=== PATIENT | male | born 1955 | race African-American/Black ===

== ENCOUNTER 2018-06-11 19:10 | Inpatient (IN) | payer MEDICAID ==
[~2018-06-11] VITALS: Ht 177.8 cm; Wt 94.5 kg
[2018-06-11] MEDS ORDERED: AMLO10TA6 PO (19:34)
[2018-06-11] MEDS ORDERED: METO50TA82 PO (19:34)
[2018-06-11] MEDS ORDERED: ATOR-2 PO (19:34)
[2018-06-11] MEDS ORDERED: ASPI-496 PO (19:34)
[2018-06-11] MEDS ORDERED: ENAL20TA PO (19:34)
[2018-06-11] MEDS ORDERED: ONDANSETRON ODT 4 MG PO PRN (20:30)
[2018-06-11] MEDS ORDERED: ONDANSETRON 2MG/ML, 2ML IVPush PRN (20:30)
[2018-06-11] MEDS ORDERED: hydrALAzine 20 MG/ML, 1ML IVPush PRN (20:30)
[2018-06-11 21:28] VITALS: BP 166/104
[2018-06-11] MEDS: SODIUM CHLORIDE 0.9% 1,000 ML IV SCH (21:58)
[2018-06-11] MEDS: HEPARIN 5,000 UNITS/ML, 1ML SQ SCH (22:00)
[2018-06-11] MEDS: NICOTINE 14MG/24 HR PATCH.TD24 TD SCH (22:01)
[2018-06-11] MEDS: AMITRIPTYLINE 25 MG TABLET PO SCH (22:01)
[2018-06-11] MEDS: METOPROLOL TARTRATE 50 MG TABLET PO SCH (22:01)
[2018-06-11] MEDS: ATORVASTATIN 10 MG TABLET PO SCH (22:01)
[2018-06-12 04:28] VITALS: BP 161/98
[2018-06-12] MEDS: ACETAMINOPHEN 325 MG TABLET PO PRN (04:35)
[2018-06-12] MEDS: HEPARIN 5,000 UNITS/ML, 1ML SQ SCH ×3 (04:35→21:20)
[2018-06-12 05:21] LABS: BASOPHILS # (AUTO) 0.06 x10^3/uL (0-0.1); BASOPHILS % (AUTO) 1 % (0-1); EOSINOPHILS # (AUTO) 0.59 x10^3/uL (0-0.4); EOSINOPHILS % (AUTO) 6 % (1-7); LYMPHOCYTES # (AUTO) 2.44 x10^3/uL (1-3.4); LYMPHOCYTES % (AUTO) 26 % (22-44); MD NO; MEAN CORPUSCULAR HEMOGLOBIN 28.8 pg (27.5-34.5); MEAN CORPUSCULAR HGB CONC 32.9 g/dL (33.2-36.2); MEAN CORPUSCULAR VOLUME 87.5 fL (81-97); MEAN PLATELET VOLUME 9.7 fL (7.4-10.4); MONOCYTES # (AUTO) 0.95 x10^3/uL (0.2-0.8); MONOCYTES % (AUTO) 10 % (2-9); NEUTROPHILS # (AUTO) 5.39 x10^3/uL (1.8-6.8); NEUTROPHILS % (AUTO) 57 % (42-75); PLATELET COUNT 214 x10^3/uL (130-400); RED CELL DISTRIBUTION WIDTH 15.1 % (9.4-14.8)
[2018-06-12 05:34] LABS: ANION GAP 6 mmol/L (5-15); CALCIUM 8.6 mg/dL (8.5-10.1); CHLORIDE 109 mmol/L (98-107); CREATININE 0.89 mg/dL (0.7-1.3)
[2018-06-12 07:04] VITALS: BP 150/83
[2018-06-12] MEDS: SODIUM CHLORIDE 0.9% 1,000 ML IV SCH ×2 (09:39→14:50)
[2018-06-12] MEDS: AMLODIPINE 10 MG TAB PO SCH (09:40)
[2018-06-12] MEDS: METOPROLOL TARTRATE 50 MG TABLET PO SCH ×2 (09:40→21:21)
[2018-06-12] MEDS: ENALAPRIL 20MG TABLET PO SCH (09:40)
[2018-06-12] MEDS: ASPIRIN 81 MG TABLET EC PO SCH (09:41)
[2018-06-12] MEDS ORDERED: GADOBUTROL 10 MMOL/10 ML PFS ONE (10:00)
[2018-06-12 13:08] VITALS: BP 173/106
[2018-06-12 19:02] VITALS: BP 144/102
[2018-06-12] MEDS: ATORVASTATIN 10 MG TABLET PO SCH (21:21)
[2018-06-12] MEDS: AMITRIPTYLINE 25 MG TABLET PO SCH (21:21)
[2018-06-12] MEDS: NICOTINE 14MG/24 HR PATCH.TD24 TD SCH (21:26)
[2018-06-13] VITALS (8 sets, daily range): BP systolic 104–182; BP diastolic 76–113
[2018-06-13] MEDS: HEPARIN 5,000 UNITS/ML, 1ML SQ SCH ×3 (05:26→21:40)
[2018-06-13] MEDS: ACETAMINOPHEN 325 MG TABLET PO PRN (05:32)
[2018-06-13] MEDS: BACLOFEN 10 MG TABLET PO PRN (05:32)
[2018-06-13] MEDS: ENALAPRIL 20MG TABLET PO SCH (08:34)
[2018-06-13] MEDS: ASPIRIN 81 MG TABLET EC PO SCH (08:34)
[2018-06-13] MEDS: AMLODIPINE 10 MG TAB PO SCH (08:35)
[2018-06-13] MEDS: METOPROLOL TARTRATE 50 MG TABLET PO SCH ×2 (08:35→21:40)
[2018-06-13] MEDS ORDERED: OMNIPAQUE 350 MG/ML, 100ML BOTTLE ONE (10:27)
[2018-06-13] MEDS: SODIUM CHLORIDE 0.9% 1,000 ML IV SCH (20:00)
[2018-06-13] MEDS: AMITRIPTYLINE 25 MG TABLET PO SCH (21:40)
[2018-06-13] MEDS: ATORVASTATIN 10 MG TABLET PO SCH (21:40)
[2018-06-13] MEDS: NICOTINE 14MG/24 HR PATCH.TD24 TD SCH (21:41)
[2018-06-14 02:32] VITALS: BP 145/103
[2018-06-14] MEDS: POLYETHYLENE GLYCOL 17 GM PACKET PO PRN (02:50)
[2018-06-14 08:16] VITALS: BP 146/97
[2018-06-14 08:25] LABS: INTERNATIONAL NORMALIZED RATIO 0.98 (0.93-1.1); PROTHROMBIN TIME 10.2 Seconds (9.6-11.5)
[2018-06-14] MEDS: SODIUM CHLORIDE 0.9% 1,000 ML IV SCH (09:20)
[2018-06-14] MEDS ORDERED: REGADENOSON 0.4 MG/5 ML SYRINGE ONE (09:41)
[2018-06-14 12:47] VITALS: BP 145/83
[2018-06-14] MEDS: AMLODIPINE 10 MG TAB PO SCH (12:50)
[2018-06-14] MEDS: METOPROLOL TARTRATE 50 MG TABLET PO SCH ×2 (12:50→22:36)
[2018-06-14] MEDS: ENALAPRIL 20MG TABLET PO SCH (12:50)
[2018-06-14] MEDS ORDERED: HEPARIN 5,000 UNITS/ML, 1ML SQ ONE (13:00)
[2018-06-14] MEDS ORDERED: HEPARIN 5,000 UNITS/ML, 1ML ONE (13:09)
[2018-06-14] MEDS ORDERED: HEPARIN 5,000 UNITS/ML, 1ML SQ SCH (20:30)
[2018-06-14] MEDS ORDERED: BISACODYL 10 MG SUPP ONE (22:26)
[2018-06-14] MEDS: BISACODYL 10 MG SUPP PR PRN (22:31)
[2018-06-14] MEDS: ATORVASTATIN 10 MG TABLET PO SCH (22:35)
[2018-06-14] MEDS: NICOTINE 14MG/24 HR PATCH.TD24 TD SCH (22:35)
[2018-06-14] MEDS: AMITRIPTYLINE 25 MG TABLET PO SCH (22:36)
[2018-06-15] MEDS: SODIUM CHLORIDE 0.9% 1,000 ML IV SCH ×2 (02:12→16:10)
[2018-06-15 02:54] VITALS: BP 121/78
[2018-06-15 05:39] LABS: BASOPHILS # (AUTO) 0.05 x10^3/uL (0-0.1); BASOPHILS % (AUTO) 1 % (0-1); EOSINOPHILS # (AUTO) 0.74 x10^3/uL (0-0.4); EOSINOPHILS % (AUTO) 7 % (1-7); LYMPHOCYTES # (AUTO) 2.74 x10^3/uL (1-3.4); LYMPHOCYTES % (AUTO) 26 % (22-44); MD NO; MEAN CORPUSCULAR HEMOGLOBIN 29.2 pg (27.5-34.5); MEAN CORPUSCULAR HGB CONC 33.2 g/dL (33.2-36.2); MEAN PLATELET VOLUME 9.3 fL (7.4-10.4); MONOCYTES # (AUTO) 1.06 x10^3/uL (0.2-0.8); MONOCYTES % (AUTO) 10 % (2-9); NEUTROPHILS # (AUTO) 6.12 x10^3/uL (1.8-6.8); NEUTROPHILS % (AUTO) 57 % (42-75); PLATELET COUNT 221 x10^3/uL (130-400); RED BLOOD COUNT 5.42 x10^6/uL (4.38-5.82); RED CELL DISTRIBUTION WIDTH 15.2 % (9.4-14.8)
[2018-06-15 05:50] LABS: ANION GAP 5 mmol/L (5-15); CALCIUM 8.6 mg/dL (8.5-10.1); CHLORIDE 108 mmol/L (98-107); CREATININE 1.06 mg/dL (0.7-1.3)
[2018-06-15 07:44] VITALS: BP 123/85
[2018-06-15] MEDS ORDERED: BUPIVACAINE/PF-EPI 0.5% 1:200K ONE (08:11)
[2018-06-15] MEDS ORDERED: THROMBIN 5,000 UNIT VIAL TP ONE (08:11)
[2018-06-15] MEDS ORDERED: BACITRACIN 50,000 UNIT ONE (08:12)
[2018-06-15] MEDS ORDERED: FENTANYL PF 250 MCG/5ML ONE ×2 (08:36→09:24)
[2018-06-15] MEDS ORDERED: MIDAZOLAM 1 MG/ML, 2ML ONE (08:36)
[2018-06-15] MEDS ORDERED: PROPOFOL 50 ML ONE ×5 (08:36→13:37)
[2018-06-15] MEDS: METOPROLOL TARTRATE 50 MG TABLET PO SCH ×2 (08:57→21:19)
[2018-06-15] MEDS: ENALAPRIL 20MG TABLET PO SCH (08:57)
[2018-06-15] MEDS: AMLODIPINE 10 MG TAB PO SCH (08:57)
[2018-06-15] MEDS ORDERED: PROPOFOL 10 MG/ML, 20ML ONE (09:29)
[2018-06-15] MEDS ORDERED: CEFAZOLIN 1,000 MG ONE ×2 (09:29)
[2018-06-15] MEDS ORDERED: DEXAMETHASONE 4 MG/ML, 1ML ONE ×2 (09:30)
[2018-06-15] MEDS ORDERED: SUCCINYLCHOLINE 20 MG/ML, 10ML ONE (09:30)
[2018-06-15] MEDS ORDERED: ROCURONIUM 10MG/ML,5ML ONE (09:30)
[2018-06-15] MEDS ORDERED: VASOPRESSIN 20 UNIT/ML, 1ML ONE (10:54)
[2018-06-15] MEDS ORDERED: BACITRACIN OINT 500U/GM, 15 GM ONE (14:10)
[2018-06-15] MEDS ORDERED: OXYcodone 5 MG/5 ML ORAL.SOL UDC ONE (14:54)
[2018-06-15] MEDS ORDERED: FENTANYL PF 100 MCG/2ML ONE (14:54)
[2018-06-15] MEDS: FENTANYL PF 100 MCG/2ML IV PRN ×2 (14:58→15:08)
[2018-06-15] MEDS ORDERED: EPHEDRINE 50 MG/ML, 1ML IM PRN (15:00)
[2018-06-15] MEDS ORDERED: DIPHENHYDRAMINE 50 MG/ML, 1ML IVPush PRN (15:00)
[2018-06-15] MEDS ORDERED: MEPERIDINE/PF 25MG/0.5ML IVPush PRN (15:00)
[2018-06-15] MEDS ORDERED: OXYcodone 5 MG/5 ML ORAL.SOL UDC PO PRN (15:00)
[2018-06-15] MEDS ORDERED: MIDAZOLAM 1 MG/ML, 2ML IV PRN (15:00)
[2018-06-15] MEDS ORDERED: CEFAZOLIN 1,000 MG IM SCH (15:00)
[2018-06-15] MEDS ORDERED: MORPHINE SULFATE 4 MG/ML, 1ML IVPush PRN (15:00)
[2018-06-15] MEDS ORDERED: ONDANSETRON ODT 8 MG PO PRN (15:00)
[2018-06-15] MEDS ORDERED: ONDANSETRON 2MG/ML, 2ML IV PRN (15:00)
[2018-06-15] MEDS ORDERED: HYDROmorphone 2 MG/ML, 1ML ONE (15:04)
[2018-06-15] MEDS: KETOROLAC 30 MG/1 ML IVPush SCH ×2 (16:10→21:18)
[2018-06-15] MEDS: CEFAZOLIN PMX 1GM/50ML 50 ML IVPB SCH (16:16)
[2018-06-15 20:02] VITALS: BP 148/109
[2018-06-15] MEDS: NICOTINE 14MG/24 HR PATCH.TD24 TD SCH (21:18)
[2018-06-15] MEDS: AMITRIPTYLINE 25 MG TABLET PO SCH (21:18)
[2018-06-15] MEDS: ATORVASTATIN 10 MG TABLET PO SCH (21:19)
[2018-06-16 00:31] VITALS: BP 123/89
[2018-06-16] MEDS: CEFAZOLIN PMX 1GM/50ML 50 ML IVPB SCH ×3 (01:11→17:22)
[2018-06-16] MEDS: KETOROLAC 30 MG/1 ML IVPush SCH ×4 (02:57→21:03)
[2018-06-16 04:03] VITALS: BP 125/83
[2018-06-16] MEDS: SODIUM CHLORIDE 0.9% 1,000 ML IV SCH ×2 (06:07→21:03)
[2018-06-16 08:23] VITALS: BP 140/89
[2018-06-16] MEDS: AMLODIPINE 10 MG TAB PO SCH (08:23)
[2018-06-16] MEDS: ENALAPRIL 20MG TABLET PO SCH (08:23)
[2018-06-16] MEDS: METOPROLOL TARTRATE 50 MG TABLET PO SCH ×2 (08:23→21:06)
[2018-06-16] MEDS: ACETAMINOPHEN 325 MG TABLET PO PRN (09:34)
[2018-06-16] MEDS: BACLOFEN 10 MG TABLET PO PRN (09:34)
[2018-06-16 12:55] VITALS: BP 109/75
[2018-06-16] MEDS: HYDROcodone/APAP 5/325 TABLET PO PRN (17:22)
[2018-06-16 18:29] VITALS: BP 136/85
[2018-06-16] MEDS: NICOTINE 14MG/24 HR PATCH.TD24 TD SCH (21:04)
[2018-06-16] MEDS: ATORVASTATIN 10 MG TABLET PO SCH (21:05)
[2018-06-16] MEDS: AMITRIPTYLINE 25 MG TABLET PO SCH (21:05)
[2018-06-17 00:28] VITALS: BP 111/75
[2018-06-17] MEDS: CEFAZOLIN PMX 1GM/50ML 50 ML IVPB SCH ×3 (01:06→18:35)
[2018-06-17] MEDS: KETOROLAC 30 MG/1 ML IVPush SCH ×2 (03:49→08:57)
[2018-06-17] MEDS: HYDROcodone/APAP 5/325 TABLET PO PRN ×4 (04:08→22:07)
[2018-06-17 05:17] LABS: CHLORIDE 107 mmol/L (98-107)
[2018-06-17 05:40] LABS: ANION GAP 8 mmol/L (5-15); CREATININE 0.91 mg/dL (0.7-1.3)
[2018-06-17 06:12] LABS: MEAN CORPUSCULAR HEMOGLOBIN 29.2 pg (27.5-34.5); MEAN CORPUSCULAR HGB CONC 33.2 g/dL (33.2-36.2); MEAN CORPUSCULAR VOLUME 87.9 fL (81-97); MEAN PLATELET VOLUME 9.4 fL (7.4-10.4); PLATELET COUNT 170 x10^3/uL (130-400); RED BLOOD COUNT 3.99 x10^6/uL (4.38-5.82); RED CELL DISTRIBUTION WIDTH 15.1 % (9.4-14.8)
[2018-06-17 06:41] LABS: BASOPHILS # (AUTO) 0.06 x10^3/uL (0-0.1); BASOPHILS % (AUTO) 1 % (0-1); EOSINOPHILS # (AUTO) 0.25 x10^3/uL (0-0.4); EOSINOPHILS % (AUTO) 2 % (1-7); LYMPHOCYTES % (AUTO) 18 % (22-44); MD SCAN; MONOCYTES # (AUTO) 1.52 x10^3/uL (0.2-0.8); MONOCYTES % (AUTO) 13 % (2-9); NEUTROPHILS # (AUTO) 7.47 x10^3/uL (1.8-6.8); NEUTROPHILS % (AUTO) 66 % (42-75)
[2018-06-17 08:28] LABS: MD YES; MEAN CORPUSCULAR HGB CONC 33.2 g/dL (33.2-36.2); MEAN CORPUSCULAR VOLUME 87.3 fL (81-97); MEAN PLATELET VOLUME 9.3 fL (7.4-10.4); PLATELET COUNT 178 x10^3/uL (130-400); RED BLOOD COUNT 3.95 x10^6/uL (4.38-5.82); RED CELL DISTRIBUTION WIDTH 15.7 % (9.4-14.8)
[2018-06-17 08:31] LABS: <PLATELET ESTIMATE> ADEQUATE; <RBC MORPHOLOGY> NORMAL; EOS#(MANUAL) 0.46 x10^3/uL (0.0-0.4); EOS% (MANUAL) 4 % (1-7); GIANT PLATELETS 1+; LARGE PLATELETS 1+; LYMPH#(MANUAL) 2.05 x10^3/uL (1-3.4); LYMPHS% (MANUAL) 18 % (22-44); MONOS#(MANUAL) 0.91 x10^3/uL (0.3-2.7); MONOS% (MANUAL) 8 % (2-9); SEG#(MANUAL) 7.98 x10^3/uL (1.8-6.8); SEGS% (MANUAL) 70 % (42-75)
[2018-06-17 08:52] VITALS: BP 122/92
[2018-06-17] MEDS: ENALAPRIL 20MG TABLET PO SCH (08:56)
[2018-06-17] MEDS: METOPROLOL TARTRATE 50 MG TABLET PO SCH ×2 (08:56→22:07)
[2018-06-17] MEDS: AMLODIPINE 10 MG TAB PO SCH (09:11)
[2018-06-17] MEDS: BACLOFEN 10 MG TABLET PO PRN ×2 (10:08→18:36)
[2018-06-17] MEDS: SODIUM CHLORIDE 0.9% 1,000 ML IV SCH ×2 (12:20→22:00)
[2018-06-17 15:27] VITALS: BP 153/96
[2018-06-17 19:41] VITALS: BP 133/85
[2018-06-17] MEDS: NICOTINE 14MG/24 HR PATCH.TD24 TD SCH (22:07)
[2018-06-17] MEDS: AMITRIPTYLINE 25 MG TABLET PO SCH (22:07)
[2018-06-17] MEDS: ATORVASTATIN 10 MG TABLET PO SCH (22:07)
[2018-06-18] MEDS: CEFAZOLIN PMX 1GM/50ML 50 ML IVPB SCH ×3 (00:47→16:51)
[2018-06-18 00:53] VITALS: BP 147/80
[2018-06-18] MEDS: SODIUM CHLORIDE 0.9% 1,000 ML IV SCH ×2 (03:48→19:18)
[2018-06-18 07:42] VITALS: BP 142/94
[2018-06-18] MEDS: ENALAPRIL 20MG TABLET PO SCH (08:22)
[2018-06-18] MEDS: AMLODIPINE 10 MG TAB PO SCH (08:23)
[2018-06-18] MEDS: METOPROLOL TARTRATE 50 MG TABLET PO SCH ×2 (08:23→21:16)
[2018-06-18] MEDS: POLYETHYLENE GLYCOL 17 GM PACKET PO PRN (08:23)
[2018-06-18] MEDS: METHOCARBAMOL 750 MG TABLET PO SCH ×3 (08:44→21:16)
[2018-06-18] MEDS: OXYcodone/APAP 5/325MG TABLET PO PRN ×3 (12:01→22:55)
[2018-06-18 13:49] VITALS: BP 109/71
[2018-06-18] MEDS: BISACODYL 10 MG SUPP PR PRN (14:04)
[2018-06-18 15:57] LABS: OCCULT BLOOD NEGATIVE (NEGATIVE)
[2018-06-18 20:06] VITALS: BP 130/84
[2018-06-18] MEDS: ATORVASTATIN 10 MG TABLET PO SCH (21:16)
[2018-06-18] MEDS: AMITRIPTYLINE 25 MG TABLET PO SCH (21:16)
[2018-06-18] MEDS: NICOTINE 14MG/24 HR PATCH.TD24 TD SCH (22:05)
[2018-06-19] MEDS: CEFAZOLIN PMX 1GM/50ML 50 ML IVPB SCH ×3 (01:10→21:22)
[2018-06-19 03:00] VITALS: BP 133/96
[2018-06-19] MEDS: OXYcodone/APAP 5/325MG TABLET PO PRN ×4 (04:59→23:50)
[2018-06-19 05:45] LABS: MEAN CORPUSCULAR HEMOGLOBIN 29.1 pg (27.5-34.5); MEAN CORPUSCULAR HGB CONC 33.2 g/dL (33.2-36.2); MEAN CORPUSCULAR VOLUME 87.5 fL (81-97); MEAN PLATELET VOLUME 9.3 fL (7.4-10.4); PLATELET COUNT 194 x10^3/uL (130-400); RED BLOOD COUNT 4.01 x10^6/uL (4.38-5.82); RED CELL DISTRIBUTION WIDTH 14.9 % (9.4-14.8)
[2018-06-19 05:55] LABS: ANION GAP 5 mmol/L (5-15); CALCIUM 8.7 mg/dL (8.5-10.1); CHLORIDE 101 mmol/L (98-107); CREATININE 0.78 mg/dL (0.7-1.3)
[2018-06-19 06:51] LABS: BASOPHILS # (AUTO) 0.09 x10^3/uL (0-0.1); BASOPHILS % (AUTO) 1 % (0-1); EOSINOPHILS # (AUTO) 0.25 x10^3/uL (0-0.4); EOSINOPHILS % (AUTO) 2 % (1-7); LYMPHOCYTES # (AUTO) 2.07 x10^3/uL (1-3.4); LYMPHOCYTES % (AUTO) 16 % (22-44); MD SCAN; MONOCYTES # (AUTO) 1.67 x10^3/uL (0.2-0.8); MONOCYTES % (AUTO) 13 % (2-9); NEUTROPHILS # (AUTO) 8.58 x10^3/uL (1.8-6.8); NEUTROPHILS % (AUTO) 68 % (42-75)
[2018-06-19 07:30] VITALS: BP 130/82
[2018-06-19] MEDS: ENALAPRIL 20MG TABLET PO SCH (10:07)
[2018-06-19] MEDS: METHOCARBAMOL 750 MG TABLET PO SCH ×3 (10:07→21:23)
[2018-06-19] MEDS: AMLODIPINE 10 MG TAB PO SCH (10:08)
[2018-06-19] MEDS: METOPROLOL TARTRATE 50 MG TABLET PO SCH ×2 (10:08→21:23)
[2018-06-19 13:40] VITALS: BP 122/79
[2018-06-19] MEDS: SODIUM CHLORIDE 0.9% 1,000 ML IV SCH (14:00)
[2018-06-19 16:40] VITALS: BP 146/99
[2018-06-19] MEDS ORDERED: OMNIPAQUE 350 MG/ML, 100ML BOTTLE ONE (17:18)
[2018-06-19 17:20] VITALS: BP 136/86
[2018-06-19 17:21] LABS: TROPONIN I < 0.015 ng/mL (0.000-0.045)
[2018-06-19 21:14] LABS: TROPONIN I < 0.015 ng/mL (0.000-0.045)
[2018-06-19 21:17] VITALS: BP 129/87
[2018-06-19] MEDS: AMITRIPTYLINE 25 MG TABLET PO SCH (21:22)
[2018-06-19] MEDS: ATORVASTATIN 10 MG TABLET PO SCH (21:22)
[2018-06-19] MEDS: NICOTINE 14MG/24 HR PATCH.TD24 TD SCH (21:24)
[2018-06-20] VITALS (7 sets, daily range): BP systolic 90–135; BP diastolic 63–93
[2018-06-20] MEDS: SODIUM CHLORIDE 0.9% 1,000 ML IV SCH ×2 (03:20→16:45)
[2018-06-20] MEDS: CEFAZOLIN PMX 1GM/50ML 50 ML IVPB SCH ×3 (05:36→21:33)
[2018-06-20] MEDS: OXYcodone/APAP 5/325MG TABLET PO PRN ×2 (05:36→19:04)
[2018-06-20 08:03] LABS: BASOPHILS # (AUTO) 0.03 x10^3/uL (0-0.1); BASOPHILS % (AUTO) 0 % (0-1); EOSINOPHILS # (AUTO) 0.34 x10^3/uL (0-0.4); EOSINOPHILS % (AUTO) 2 % (1-7); LYMPHOCYTES # (AUTO) 1.57 x10^3/uL (1-3.4); LYMPHOCYTES % (AUTO) 11 % (22-44); MD NO; MEAN CORPUSCULAR HEMOGLOBIN 28.3 pg (27.5-34.5); MEAN CORPUSCULAR HGB CONC 32.2 g/dL (33.2-36.2); MEAN CORPUSCULAR VOLUME 87.8 fL (81-97); MEAN PLATELET VOLUME 9.2 fL (7.4-10.4); MONOCYTES # (AUTO) 1.76 x10^3/uL (0.2-0.8); MONOCYTES % (AUTO) 13 % (2-9); NEUTROPHILS # (AUTO) 10.12 x10^3/uL (1.8-6.8); NEUTROPHILS % (AUTO) 73 % (42-75); PLATELET COUNT 251 x10^3/uL (130-400); RED BLOOD COUNT 3.97 x10^6/uL (4.38-5.82); RED CELL DISTRIBUTION WIDTH 14.5 % (9.4-14.8)
[2018-06-20] MEDS: METOPROLOL TARTRATE 50 MG TABLET PO SCH ×2 (08:55→21:32)
[2018-06-20] MEDS: ENALAPRIL 20MG TABLET PO SCH (08:55)
[2018-06-20] MEDS: AMLODIPINE 10 MG TAB PO SCH (08:55)
[2018-06-20] MEDS: METHOCARBAMOL 750 MG TABLET PO SCH ×3 (08:55→21:31)
[2018-06-20 09:41] LABS: MICROSCOPIC NOT IND
[2018-06-20 09:47] LABS: CULTURE INDICATED? NO
[2018-06-20] MEDS: HYDROcodone/APAP 5/325 TABLET PO PRN (18:06)
[2018-06-20] MEDS: AMITRIPTYLINE 25 MG TABLET PO SCH (21:31)
[2018-06-20] MEDS: ATORVASTATIN 10 MG TABLET PO SCH (21:31)
[2018-06-20] MEDS: NICOTINE 14MG/24 HR PATCH.TD24 TD SCH (21:41)
[2018-06-21] MEDS: OXYcodone/APAP 5/325MG TABLET PO PRN ×3 (01:59→21:12)
[2018-06-21 04:09] VITALS: BP 138/89
[2018-06-21] MEDS: CEFAZOLIN PMX 1GM/50ML 50 ML IVPB SCH ×3 (05:18→21:29)
[2018-06-21] MEDS: SODIUM CHLORIDE 0.9% 1,000 ML IV SCH (05:18)
[2018-06-21 06:25] LABS: MEAN CORPUSCULAR HEMOGLOBIN 29.1 pg (27.5-34.5); MEAN CORPUSCULAR HGB CONC 33.2 g/dL (33.2-36.2); MEAN CORPUSCULAR VOLUME 87.7 fL (81-97); MEAN PLATELET VOLUME 8.8 fL (7.4-10.4); PLATELET COUNT 285 x10^3/uL (130-400); RED BLOOD COUNT 3.97 x10^6/uL (4.38-5.82); RED CELL DISTRIBUTION WIDTH 14.7 % (9.4-14.8)
[2018-06-21 06:36] LABS: ANION GAP 6 mmol/L (5-15); CALCIUM 8.8 mg/dL (8.5-10.1); CHLORIDE 95 mmol/L (98-107); CREATININE 0.93 mg/dL (0.7-1.3)
[2018-06-21 06:52] LABS: BASOPHILS % (AUTO) 0 % (0-1); EOSINOPHILS # (AUTO) 0.19 x10^3/uL (0-0.4); EOSINOPHILS % (AUTO) 2 % (1-7); LYMPHOCYTES # (AUTO) 1.21 x10^3/uL (1-3.4); LYMPHOCYTES % (AUTO) 10 % (22-44); MD SCAN; MONOCYTES # (AUTO) 1.74 x10^3/uL (0.2-0.8); MONOCYTES % (AUTO) 15 % (2-9); NEUTROPHILS # (AUTO) 8.83 x10^3/uL (1.8-6.8); NEUTROPHILS % (AUTO) 74 % (42-75)
[2018-06-21 08:09] VITALS: BP 123/83
[2018-06-21] MEDS: ENALAPRIL 20MG TABLET PO SCH (09:09)
[2018-06-21] MEDS: METHOCARBAMOL 750 MG TABLET PO SCH ×3 (09:09→21:13)
[2018-06-21] MEDS: METOPROLOL TARTRATE 50 MG TABLET PO SCH ×2 (09:10→21:13)
[2018-06-21] MEDS: AMLODIPINE 10 MG TAB PO SCH (09:10)
[2018-06-21 13:06] VITALS: BP 124/82
[2018-06-21 19:32] VITALS: BP 122/79
[2018-06-21] MEDS: ATORVASTATIN 10 MG TABLET PO SCH (21:13)
[2018-06-21] MEDS: AMITRIPTYLINE 25 MG TABLET PO SCH (21:13)
[2018-06-21] MEDS: NICOTINE 14MG/24 HR PATCH.TD24 TD SCH (21:29)
[2018-06-22] MEDS: SODIUM CHLORIDE 0.9% 1,000 ML IV SCH ×2 (01:21→15:13)
[2018-06-22] MEDS: OXYcodone/APAP 5/325MG TABLET PO PRN ×3 (01:21→20:51)
[2018-06-22 02:12] VITALS: BP 104/70
[2018-06-22] MEDS: CEFAZOLIN PMX 1GM/50ML 50 ML IVPB SCH (05:17)
[2018-06-22 07:40] VITALS: BP 120/78
[2018-06-22] MEDS: METHOCARBAMOL 750 MG TABLET PO SCH ×3 (08:38→20:51)
[2018-06-22] MEDS: ENALAPRIL 20MG TABLET PO SCH (08:38)
[2018-06-22] MEDS: AMLODIPINE 10 MG TAB PO SCH (08:39)
[2018-06-22] MEDS: METOPROLOL TARTRATE 50 MG TABLET PO SCH ×2 (08:39→20:51)
[2018-06-22 08:40] VITALS: BP 127/88
[2018-06-22] MEDS: ACETAMINOPHEN 325 MG TABLET PO PRN (12:51)
[2018-06-22 13:41] VITALS: BP 106/69
[2018-06-22 20:43] VITALS: BP 157/91
[2018-06-22] MEDS: ATORVASTATIN 10 MG TABLET PO SCH (20:51)
[2018-06-22] MEDS: AMITRIPTYLINE 25 MG TABLET PO SCH (20:51)
[2018-06-22] MEDS: NICOTINE 14MG/24 HR PATCH.TD24 TD SCH (21:48)
[2018-06-23 01:11] VITALS: BP 117/88
[2018-06-23] MEDS: OXYcodone/APAP 5/325MG TABLET PO PRN ×4 (04:13→17:58)
[2018-06-23] MEDS: SODIUM CHLORIDE 0.9% 1,000 ML IV SCH ×2 (04:40→17:55)
[2018-06-23 05:20] LABS: MEAN CORPUSCULAR HEMOGLOBIN 28.7 pg (27.5-34.5); MEAN CORPUSCULAR HGB CONC 32.4 g/dL (33.2-36.2); MEAN CORPUSCULAR VOLUME 88.5 fL (81-97); MEAN PLATELET VOLUME 8.2 fL (7.4-10.4); PLATELET COUNT 371 x10^3/uL (130-400); RED BLOOD COUNT 3.78 x10^6/uL (4.38-5.82); RED CELL DISTRIBUTION WIDTH 14.8 % (9.4-14.8)
[2018-06-23 05:29] LABS: ANION GAP 10 mmol/L (5-15); CALCIUM 8.8 mg/dL (8.5-10.1); CHLORIDE 97 mmol/L (98-107); CREATININE 0.79 mg/dL (0.7-1.3)
[2018-06-23 05:47] LABS: BASOPHILS # (AUTO) 0.15 x10^3/uL (0-0.1); BASOPHILS % (AUTO) 1 % (0-1); EOSINOPHILS # (AUTO) 0.42 x10^3/uL (0-0.4); EOSINOPHILS % (AUTO) 4 % (1-7); LYMPHOCYTES # (AUTO) 1.65 x10^3/uL (1-3.4); LYMPHOCYTES % (AUTO) 14 % (22-44); MD SCAN; MONOCYTES # (AUTO) 1.67 x10^3/uL (0.2-0.8); MONOCYTES % (AUTO) 15 % (2-9); NEUTROPHILS # (AUTO) 7.55 x10^3/uL (1.8-6.8); NEUTROPHILS % (AUTO) 66 % (42-75)
[2018-06-23 06:29] VITALS: BP 123/84
[2018-06-23] MEDS: ENALAPRIL 20MG TABLET PO SCH (08:56)
[2018-06-23] MEDS: METHOCARBAMOL 750 MG TABLET PO SCH ×3 (08:56→20:53)
[2018-06-23] MEDS: AMLODIPINE 10 MG TAB PO SCH (08:56)
[2018-06-23] MEDS: METOPROLOL TARTRATE 50 MG TABLET PO SCH ×2 (08:56→20:53)
[2018-06-23 12:03] VITALS: BP 111/72
[2018-06-23] MEDS: ACETAMINOPHEN 325 MG TABLET PO PRN (15:01)
[2018-06-23] MEDS: POLYETHYLENE GLYCOL 17 GM PACKET PO PRN (15:50)
[2018-06-23 18:49] VITALS: BP 111/77
[2018-06-23] MEDS: ATORVASTATIN 10 MG TABLET PO SCH (20:53)
[2018-06-23] MEDS: AMITRIPTYLINE 25 MG TABLET PO SCH (20:53)
[2018-06-23] MEDS: NICOTINE 14MG/24 HR PATCH.TD24 TD SCH (22:00)
[2018-06-24] MEDS: OXYcodone/APAP 5/325MG TABLET PO PRN ×4 (00:19→20:20)
[2018-06-24 00:59] VITALS: BP 129/77
[2018-06-24 07:02] VITALS: BP 125/73
[2018-06-24] MEDS: METHOCARBAMOL 750 MG TABLET PO SCH ×3 (08:04→21:42)
[2018-06-24] MEDS: METOPROLOL TARTRATE 50 MG TABLET PO SCH ×2 (08:04→21:42)
[2018-06-24] MEDS: ENALAPRIL 20MG TABLET PO SCH (08:04)
[2018-06-24] MEDS: AMLODIPINE 10 MG TAB PO SCH (08:04)
[2018-06-24] MEDS: ACETAMINOPHEN 325 MG TABLET PO PRN (11:07)
[2018-06-24] MEDS: SODIUM CHLORIDE 0.9% 1,000 ML IV SCH ×2 (12:00→21:51)
[2018-06-24 12:37] VITALS: BP 99/69
[2018-06-24] MEDS: POLYETHYLENE GLYCOL 17 GM PACKET PO PRN (15:19)
[2018-06-24 19:08] VITALS: BP 117/76
[2018-06-24] MEDS: ATORVASTATIN 10 MG TABLET PO SCH (21:42)
[2018-06-24] MEDS: AMITRIPTYLINE 25 MG TABLET PO SCH (21:42)
[2018-06-24] MEDS: NICOTINE 14MG/24 HR PATCH.TD24 TD SCH (21:42)
[2018-06-25 02:06] VITALS: BP 111/82
[2018-06-25] MEDS: OXYcodone/APAP 5/325MG TABLET PO PRN ×2 (03:59→09:57)
[2018-06-25 07:22] VITALS: BP 122/92
[2018-06-25 07:46] VITALS: BP 133/88
[2018-06-25] MEDS: ENALAPRIL 20MG TABLET PO SCH (07:48)
[2018-06-25] MEDS: METHOCARBAMOL 750 MG TABLET PO SCH (07:48)
[2018-06-25] MEDS: METOPROLOL TARTRATE 50 MG TABLET PO SCH (07:48)
[2018-06-25] MEDS: AMLODIPINE 10 MG TAB PO SCH (07:48)
[2018-06-25] MEDS ORDERED: METH750T2 PO (09:46)
[2018-06-25 12:55] VITALS: BP 130/69
== END 2018-06-25 13:00 | disposition home or self-care (01) | DRG 460 ==
LOC: ED 19:30 → EDIP 19:35 → ED 19:38 → SUATTDRO 19:53 → 4NOR 21:25 → 5SO 06-19 16:52 → 4NOR 06-21 02:03
PROVIDERS: ADMIT Hospitalist; ATTEND Hospitalist
PROC: 0RG2071 Fusion of 2 or more Cervical Vertebral Joints with Autologous Tissue Substitute, Posterior Approach, Posterior Column, Open Approach (ICD-10-PCS; 2018-06-15)
PROC: 0RG4071 Fusion of Cervicothoracic Vertebral Joint with Autologous Tissue Substitute, Posterior Approach, Posterior Column, Open Approach (ICD-10-PCS; 2018-06-15)
PROC: 4A11X4G Monitoring of Peripheral Nervous Electrical Activity, Intraoperative, External Approach (ICD-10-PCS; 2018-06-15)
PROC: 0RG6071 Fusion of Thoracic Vertebral Joint with Autologous Tissue Substitute, Posterior Approach, Posterior Column, Open Approach (ICD-10-PCS; principal; 2018-06-15 09:00)
DX: M48.02 Spinal stenosis, cervical region (principal); G95.20 Unspecified cord compression; G95.89 Other specified diseases of spinal cord; R65.10 Systemic inflammatory response syndrome (SIRS) of non-infectious origin without acute organ dysfunction; M50.021 Cervical disc disorder at C4-C5 level with myelopathy; M47.12 Other spondylosis with myelopathy, cervical region; J98.11 Atelectasis; F17.210 Nicotine dependence, cigarettes, uncomplicated; D64.9 Anemia, unspecified; E11.9 Type 2 diabetes mellitus without complications; E78.5 Hyperlipidemia, unspecified; F12.90 Cannabis use, unspecified, uncomplicated; F41.9 Anxiety disorder, unspecified; I11.9 Hypertensive heart disease without heart failure; I25.10 Atherosclerotic heart disease of native coronary artery without angina pectoris; J32.9 Chronic sinusitis, unspecified; M48.061 Spinal stenosis, lumbar region without neurogenic claudication; Z82.49 Family history of ischemic heart disease and other diseases of the circulatory system; Z82.5 Family history of asthma and other chronic lower respiratory diseases; Z95.5 Presence of coronary angioplasty implant and graft; Z71.6 Tobacco abuse counseling; Z88.1 Allergy status to other antibiotic agents; Z79.82 Long term (current) use of aspirin; Z79.899 Other long term (current) drug therapy
CPT/HCPCS: 36415; 70498; 71045; 71275; 72040; 72141; 72158; 78452; 80048; 81003; 82272; 83735; 84100; 84484; 85014; 85018; 85025; 85610; 85730; 86850; 86900; 87040; 93005; 93017; 93306; 95938; 95941; 99285; A9585; C1713; G0378; J0690; J1100; J1644; J1885; J2250; J2270; J2704; J2785; J3010; Q9967; A9502; C1762; C9898; J0330; J0360; J7030